=== PATIENT | female | born 1995 | race Caucasian/White ===

== ENCOUNTER → 2016-11-24 | Outpatient (CLI) | payer OTHER ==
[~2016-11-24] MED LIST: BCPILLS PO; GADAVIST IV PRN; IUD'IUD
--- NOTE | 2016-11-24 09:22 | DIAGNOSTIC IMAGING REPORT ---
MRI OF THE BRAIN WITH AND WITHOUT CONTRAST MULTIPLE SCLEROSIS PROTOCOL CLINICAL HISTORY: Headache. Visual disturbance. Abnormal MRI. COMPARISON STUDY: MRI of the brain December 24, 2015. TECHNIQUE: Utilizing a 1.5 Shonda magnet, multiplanar, multi echo imaging of the brain was performed pre and postcontrast administration according to the multiple sclerosis protocol. Injection of 6.5 cc of Gadavist IV was uneventful. FINDINGS: There are no areas of restricted diffusion. No acute intracranial hemorrhage, midline shift or mass effect is present. Brain volume is normal. Ventricular system is normal. The basilar cisterns are patent. There are no extra-axial collections. Flow-voids for the major intracranial vessels are present. There are no intracranial masses or areas of pathologic enhancement. Multiple white matter T2 hyperintense foci, dominantly within the periventricular white matter of the parietal and occipital lobes are unchanged since MRI of December 24, 2015. No new areas of signal abnormality are present. There is no enhancement to suggest active demyelination. Calvarial signal is maintained. Orbits and sinuses are unremarkable. The appearance of the brain is unchanged. IMPRESSION: 1. No acute intracranial findings. 2. No change in multiple white matter T2 hyperintense foci, predominantly within the periventricular white matter of the bilateral occipital and parietal lobes. The findings remain nonspecific and a demyelinating disease such as multiple sclerosis is within the differential. No new foci of signal abnormality. No evidence of active demyelination. Electronically signed by: Myke Ruelas M.D. 11/24/2016 9:20 AM Dictated Date/Time: 11/24/2016 9:14 AM
== END | disposition home or self-care (01) ==
LOC: C.MRIBC 07:35
PROVIDERS: ATTEND Psychiatry & Neurology Neurology
DX: H53.9 Unspecified visual disturbance (principal); R51 Headache; R93.8 Abnormal findings on diagnostic imaging of other specified body structures

== ENCOUNTER → 2016-12-17 | Day surgery (SDC) | payer OTHER ==
[2016-12-17] VITALS (11 sets, daily range): BP systolic 93–140; BP diastolic 61–83; PULSE 64–93; TEMP 36.7–36.9; O2SAT 95–100; Ht 167.6 cm; Wt 67.5 kg
[~2016-12-17] VITALS: Ht 167.6 cm; Wt 67.5 kg
[~2016-12-17] MED LIST changes: +ACETAMINOPHEN 500 MG TAB PO PRN; -GADAVIST IV PRN
--- NOTE | 2016-12-17 11:20 | Discharge Instructions ---
Discharge Instructions Procedure Procedure Date: Dec 17, 2016. Reason for visit: Demyelinating Disorder. Discharge Discharge Date: Dec 17, 2016. Discharge Diagnosis: Demyelinating Disorder Instructions Activity Recommendations: 1 Day-May resume regular activity, 48 Hours of decreased exertion, 1 Day with no exercise/sex/sports, 1 Day with no driving/ machine use Return to School/Work: limitations (light activity x 48 hours) Recommended Home Diet: Resume Previous Diet Provider Instructions: Fluoroscopic guided lumbar puncture was performed at the left L3-L4 interlaminar space. Opening pressures measured 22 cm of water. Approximately 10 cc of clear, colorless CSF was removed and sent for laboratory analysis. There were no immediate complications. Allergies Coded Allergies: Levofloxacin (Unverified Allergy, Severe, RASH, 12/17/16) Uncoded Allergies: SULFA (Allergy, Severe, ANAPHYLAXIS, 12/17/16) Jaiden Barreto Recommendations: Call your doctor if: * Temperature above 101 degrees * Pain not relieved by pain medicine ordered * There is increased drainage or redness from any incision * You have any unanswered questions or concerns. Your Doctors Instructions noted above were prepared by provider Fabrice Cotton. Patient Signature Section: Patient Instructions Signature Page Vesta Azevedo Patient (or Guardian) Signature/Date: I have read and understand the instructions given to me by my caregivers. Caregiver/RN/Doctor Signature/Date: The above-named patient and/or guardian has received patient instructions on this date. + Original Patient Signature Page (only) stays with chart. Please make copy for patient.
--- NOTE | 2016-12-17 11:39 | DIAGNOSTIC IMAGING REPORT ---
FLUOROSCOPIC GUIDED LUMBAR PUNCTURE CLINICAL HISTORY: Demyelinating disorder. Visual changes. PROCEDURE: The risks, benefits, and alternatives to the procedure is discussed with the patient who voiced understanding. Written informed consent was obtained. The patient was placed prone on the fluoroscopy table. The lower back was prepped and draped in the usual sterile fashion. 1% lidocaine was used for local anesthesia. A 22-gauge spinal needle was inserted into the left L3-L4 interlaminar space, and approximately 10 cc of clear colorless cerebrospinal fluid was removed. The patient tolerated the procedure well. There were no immediate complications. The patient was then transported to the medical treatment unit for further observation. Fluoroscopy time: 0.2 minutes. Opening pressures: 22 cm water IMPRESSION: Fluoroscopic guided lumbar puncture with removal of approximately 10 cc of cerebrospinal fluid. There were no immediate complications. Electronically signed by: Fabrice Cotton M.D. 12/17/2016 11:38 AM Dictated Date/Time: 12/17/2016 11:37 AM
[2016-12-17 12:14] LABS: CSF APPEARANCE CLEAR; CSF COLOR COLORLESS; CSF XANTHOCHROMIC NO XANTHOCHROMIA
[2016-12-23 07:22] LABS: ALBUMIN 4.1 g/dL (3.7-5.1); IGG CSF 2.2 mg/dL (0.8-7.7); IGG SERUM 1320 mg/dL (694-1618); LYME DNA PCR CSF OR SYNOVIAL Not detected (Not Detected); LYME DNA SOURCE CSF; LYME IGG CSF NO BANDS DETECTED; LYME IGM CSF NO BANDS DETECTED; MYELIN BASIC PROTEIN 663 <2.0 mcg/L (0.0-4.0)
== END | disposition home or self-care (01) ==
LOC: C.ACU 08:53
PROVIDERS: ATTEND Physician Assistant
DX: G37.9 Demyelinating disease of central nervous system, unspecified (principal)

== ENCOUNTER → 2017-01-14 | Outpatient (CLI) | payer OTHER ==
[~2017-01-14] MED LIST changes: -ACETAMINOPHEN 500 MG TAB PO PRN; -BCPILLS PO; +GADAVIST IV PRN
--- NOTE | 2017-01-14 14:15 | DIAGNOSTIC IMAGING REPORT ---
CERVICAL SPINE MRI WITH AND WITHOUT CONTRAST HISTORY: Demyelinating disorder G37.9 Demyelinating [id number] TECHNIQUE: Multiplanar multisequence MRI of the cervical spine was performed both before and after the use of intravenous contrast. COMPARISON STUDY: None. FINDINGS: Normal signal characteristics the vertebral bodies as well as intervertebral disc. Normal signal characteristics of the cervical cord. No evidence for postcontrast sagittal enhancement. C2-C3: No significant central canal or neural foraminal narrowing. C3-C4: No significant central canal or neural foraminal narrowing. C4-C5: No significant central canal or neural foraminal narrowing. C5-C6: No significant central canal or neural foraminal narrowing. C6-C7: No significant central canal or neural foraminal narrowing. C7-T1: No significant central canal or neural foraminal narrowing. IMPRESSION: Normal study. Normal signal characteristics of the cervical cord. No abnormal postcontrast enhancement. Electronically signed by: Marcellus Beebe M.D. 01/14/2017 2:13 PM Dictated Date/Time: 01/14/2017 2:11 PM
--- NOTE | 2017-01-14 14:24 | DIAGNOSTIC IMAGING REPORT ---
THORACIC SPINE MRI WITH AND WITHOUT CONTRAST HISTORY: G37.9 Demyelinating [id number] TECHNIQUE: Multiplanar multisequence MRI of the thoracic spine was performed both before and after the intravenous administration of contrast. COMPARISON: None. FINDINGS: Alignment and curvature are intact. No fracture or subluxation. No significant central canal or neural foraminal narrowing. Mild disc space narrowing within the mid to lower thoracic spine. The thoracic spinal cord is normal in signal intensity. Sclerotic focus within the T4 vertebral body which measures 11 mm. This favors a bone island. There is a 7 mm T2 hyperintense lesion within the right hepatic lobe consistent with a cyst. There is also a 9 mm left renal cyst. No abnormal enhancement. Tiny left paracentral focal disc protrusion at T6-7 which abuts and slightly deforms anterior cord. Otherwise, no significant central canal or neural foraminal narrowing. IMPRESSION: Normal signal thoracic spinal cord with no evidence for enhancement. Mild degenerative changes as described above. Electronically signed by: Yraiel Gallegos M.D. 01/14/2017 2:22 PM Dictated Date/Time: 01/14/2017 2:12 PM
== END | disposition home or self-care (01) ==
LOC: C.MRI 11:46
PROVIDERS: ATTEND Physician Assistant
DX: G37.9 Demyelinating disease of central nervous system, unspecified (principal)